=== PATIENT | male | born 1995 | race Caucasian/White ===

== ENCOUNTER 2020-11-17 13:52 | Emergency (ER) | payer OTHER ==
[~2020-11-17] VITALS: Ht 185.4 cm; Wt 77.1 kg
[2020-11-17 14:10] VITALS: BP 133/99
[2020-11-17] MEDS ORDERED: NORCO5 PO ×3 (16:10→19:47)
[2020-11-17] MEDS ORDERED: CEPHALEXIN500 MG PO ×2 (16:10→19:53)
== END 2020-11-17 17:39 | disposition home or self-care (01) ==
LOC: ER 13:52
DX: S20.311A Abrasion of right front wall of thorax, initial encounter (principal); S00.81XA Abrasion of other part of head, initial encounter; S40.812A Abrasion of left upper arm, initial encounter; S40.811A Abrasion of right upper arm, initial encounter; S80.812A Abrasion, left lower leg, initial encounter; S80.811A Abrasion, right lower leg, initial encounter; F12.90 Cannabis use, unspecified, uncomplicated; Z79.891 Long term (current) use of opiate analgesic; Z79.899 Other long term (current) drug therapy; V23.4XXA Motorcycle driver injured in collision with car, pick-up truck or van in traffic accident, initial encounter; Y93.89 Activity, other specified; Y92.411 Interstate highway as the place of occurrence of the external cause; Y99.8 Other external cause status